=== PATIENT | male | born 1990 | race Caucasian/White ===

== ENCOUNTER 2021-07-05 21:06 | Emergency (ER) | payer SELFPAY ==
[2021-07-05 21:17] VITALS: BP 160/94; PULSE 80; RESP 16; TEMP 36.5; O2SAT 95
--- NOTE | 2021-07-05 22:02 | W.EDPROG ---
Discharge Plan Disposition Patient Disposition: HOME Condition: Improving Discharge Details Clinical Impression: Sciatica Primary Care Provider: Unknown,Unknown ED Provider: Timothy Holliday Home Meds and New Rx's Prescriptions: New lidocaine [Lidoderm] 5 % adhesive patch,medicated 1 patch topical DAILY Qty: 15 0RF Rx Instructions: leave on most painful area for up to 12 hrs naproxen [Naprosyn] 500 mg tablet 500 mg PO BID PRNQty: 20 0RF Continued calcium carbonate [Tums] 300 mg (750 mg) Tablet,Chewable 300 mg PO TID 0RF Discharge Instructions Instructions: Sciatica (ED) Additional Instructions: Lidoderm and Naprosyn as directed. Gentle stretching as tolerated. Cool and/or warm compresses every 2 hours for 20 minutes. Please watch for new or worsening symptoms and return to the ER for any concerns. When you return home please discuss with your primary care provider your ongoing symptoms, outpatient physical therapy and potentially MRI may be indicated if symptoms persist Stand Alone Forms: Work Release
[2021-07-05] MEDS: Ketorolac 60 MG/2 ML VIAL IM (22:04)
[2021-07-05] MEDS: Lidocaine 5% Patch 1 PATCH TP (22:05)
--- NOTE | 2021-07-05 22:23 | ED.GENADUL_ITS ---
Discharge Plan Disposition Patient Disposition: HOME Condition: Improving Discharge Details Clinical Impression: Sciatica Primary Care Provider: Unknown,Unknown ED Provider: Timothy Holliday Home Meds and New Rx's Prescriptions: New lidocaine [Lidoderm] 5 % adhesive patch,medicated 1 patch topical DAILY Qty: 15 0RF Rx Instructions: leave on most painful area for up to 12 hrs naproxen [Naprosyn] 500 mg tablet 500 mg PO BID PRNQty: 20 0RF Continued calcium carbonate [Tums] 300 mg (750 mg) Tablet,Chewable 300 mg PO TID 0RF Discharge Instructions Instructions: Sciatica (ED) Additional Instructions: Lidoderm and Naprosyn as directed. Gentle stretching as tolerated. Cool and/or warm compresses every 2 hours for 20 minutes. Please watch for new or worsening symptoms and return to the ER for any concerns. When you return home please discuss with your primary care provider your ongoing symptoms, outpatient physical therapy and potentially MRI may be indicated if symptoms persist Stand Alone Forms: Work Release Medical Decision Making 30-year-old gentleman reports right-sided low back pain that radiates down through his buttocks and into his upper leg but not past his knee for the past 2 months. Patient reports that this began after he began working 12-hour shifts when he was on his feet for prolonged period of time. He has not tried any xdkz-iez-kiryrde medications. He denies fever, IV drug use, bowel or bladder incontinence and/or retention. Clinically he appears well, nontoxic. In triage he mentioned balance loss talking to him he actually states that because his le g feels altered at times and at times he feels like it gives out he feels like he may lose his balance and fall. He is neurologically intact. No evidence of cauda equina. Extremely low suspicion for epidural abscess. Clinically this appears musculoskeletal in nature, sciatica, etc. Plan is to to provide IM Toradol, and Lidoderm patch, and recommend that he follows up with his primary care provider to discuss his physical therapy and/or MRI if symptoms are to persist. Patient has no additional questions or concerns and is comfortable with this plan. Standard discharge and return precautions are provided. Patient is now requesting a work note for today. Will provide work note. This documentation was generated using [employer] system, please disregard any oddities of phrase or misspellings. HPI General Mode of arrival: ambulatory . Date/Time Provider Initiated Documentation: 07/05/21 21:07 . Limitations to Documentation: no limitations . Information obtained by: patient . History of Present Illness 30 year old M presents to the emergency department with the chief complaint of back pain, described as moderate, with intensity rated at 6. Quality is described as aching, and is localized to the back. Patient extremity. Patient started experiencing this month(s) (2) and it has been constant. improves with No relieving factors improve symptom(s), Movement worsens symptoms . Patient notes no other symptoms.. Patient did receive the following treatments prior to arrival, none Related Data Home Medications Medication Instructions Recorded Confirmed calcium carbonate 300 mg (750 mg) 300 mg PO TID 07/05/21 07/05/21 chewable tablet (Tums) lidocaine 5 % topical patch 1 patch TOPICAL DAILY #15 ea 07/05/21 (Lidoderm) naproxen 500 mg tablet (Naprosyn) 500 mg PO BID PRN #20 tab 07/05/21 Previous Rx's Medication Instructions Recorded lidocaine 5 % topical patch 1 patch TOPICAL DAILY #15 ea 07/05/21 (Lidoderm) naproxen 500 mg tablet (Naprosyn) 500 mg PO BID PRN #20 tab 07/05/21 Allergies Allergy/AdvReac Type Severity Reaction Status Date / Time ibuprofen Allergy Intermediate Nausea Unverified 07/05/21 21:21 General Stated Complaint: Nk/Back Pain STEFFANIE: 3 Review of Systems Constitutional Constitutional: Denies fever(s) and Denies weakness Cardiovascular Cardiovascular: Denies chest pain and Denies dyspnea Respiratory Respiratory: Denies cough and Denies dyspnea Gastrointestinal Gastrointestinal: Denies abdominal pain, Denies fecal incontinence, Denies nausea and Denies vomiting Genitourinary Genitourinary: Denies difficulty urinating Musculoskeletal Musculoskeletal: Reports back pain, Denies arthralgias, Denies numbness, Denies stiffness and Reports tingling Integumentary/Breasts Skin/Breast: Denies rash Neurologic Neurologic: Denies numbness, Reports tingling and Denies weakness PFSH All Active Problems Sciatica (Acute) Social History Smoking/Tobacco Use Status: Never Smoking risk assessment performed?: Yes Alcohol Intake: current Alcohol Intake frequency: 0-2 drinks per day Alcohol type: beer Drug use: Daily Substance use type: marijuana Do you feel safe at home: Yes Do you feel safe in your relationship?: Yes Exam Const General: cooperative, healthy appearing, comfortable and no acute distress Orientation: alert and awake [facility] Head: normal to inspection, normocephalic and atraumatic Eyes General: appearance normal, both eyes and all related structures Conjunctivae: conjunctivae normal Neck Neck: normal visual inspection, full ROM, trachea midline and supple Resp Effort & Inspection: normal respiratory effort and able to speak in complete sentences Auscultation: clear to auscultation bilaterally Cardio Rate: regular rate Rhythm: regular rhythm GI Inspection: normal to inspection Palpation: soft, not firm, no guarding, no pulsatile masses and nontender Auscultation: normal bowel sounds Back/Spine/Pelvis Back: no CVA tenderness and back tenderness (Diffuse right lumbar and SI region) Thoracic/Lumbar Spine: straight leg raise positive (Right sided, 15 degree) Skin General skin exam: no rashes or lesions noted Neuro General: patient alert, patient awake, moves all extremities and no focal motor deficits Cognition: normal cognition Speech: speech normal Gait: normal gait Motor: muscle tone normal throughout and strength 5/5 throughout Sensory Exam: no sensory deficits noted Extrem General: normal to inspection, full ROM, capillary refill normal, no pedal edema and no calf tenderness Psych Appearance: grossly normal Mental Status: mental status grossly normal Course Vital Signs Vital signs: Vital Signs Temperature 36.5 C 07/05/21 21:17 Pulse 80 07/05/21 21:17 Respiratory Rate 16 07/05/21 21:17 Blood Pressure 160/94 H 07/05/21 21:17 Pulse Oximetry 95 07/05/21 21:17 Temperature 36.5 C 07/05/21 21:17 Temperature Source Skin 07/05/21 21:17 Pulse 80 07/05/21 21:17 Respiratory Rate 16 07/05/21 21:17 Respiratory Effort Non-Labored 07/05/21 21:22 Blood Pressure 160/94 H 07/05/21 21:17 Pulse Oximetry 95 07/05/21 21:17 Pain Level 6 07/05/21 22:04 PAWSS Have you Been Recently Intoxicated or Drunk Within the Last 30 days?: No Have you Ever Experienced Previous Episodes of Alcohol Withdrawal?: No Have you ever Experienced Withdrawal Seizures?: No Have you ever Experienced Delirium Tremens(DT)s?: No Have you ever undergone Alcohol Rehabilitation Treatment (i.e, inpt ot outpatient treatment programs)?: No Have you ever Experienced Blackouts?: No Have you ever Combined Alcohol with other Downers within the last 90 days?: No Have you ever Combined Alcohol with any other Substance of Abuse during the last 90 days?: No Positive Blood Alcohol level on Presentation? [PCS.BAL]: Yes Evidence of Increased Autonomic Activity (i.e. HR>120, tremor, sweating, agitation, nausea)?: No Result: 1
== END 2021-07-05 22:24 | disposition home or self-care (01) ==
PROVIDERS: Emergency Provider Physician Assistant
DX: M54.41 Lumbago with sciatica, right side (principal)
CPT/HCPCS: 96372; 99284; 99283; J1885

== ENCOUNTER 2022-06-07 18:48 | Emergency (ER) | payer MEDICAID, SELFPAY ==
[2022-06-07 18:55] VITALS: BP 183/98; PULSE 112; RESP 20; TEMP 36.8; O2SAT 96
--- NOTE | 2022-06-07 19:28 | ED.GENADUL_ITS ---
Discharge Plan Disposition Patient Disposition: Home Condition: Stable Discharge Details Clinical Impression: Acute sinusitis Primary Care Provider: Unknown,Unknown ED Provider: Yi Neri Home Meds and New Rx's Prescriptions: New amoxicillin-pot clavulanate 875-125 mg tablet 1 tab PO BID 10 Days Qty: 20 0RF prednisone 20 mg tablet See Rx Instructions .ROUTE .COMPLEX Qty: 12 0RF Rx Instructions: Take 3 tabs daily for 2 days, then 2 tabs daily for 2 days, then 1 tab daily for 2 days Discharge Instructions Instructions: Sinusitis (ED) Additional Instructions: Your strep, COVID, influenza and RSV tests today are negative. Your symptoms may be consistent with a sinus infection. These infections can start as a viral infection which are best treated with supportive care with fluids, rest and nlpv-egx-omecncz cough and cold medication. These infections can also be bacterial which are treated with antibiotics. Drink plenty of fluids and get plenty of rest. Alternate tylenol and motrin as needed and directed for pain. Prescriptions for steroids and antibiotics have been sent electronically to your pharmacy to take as directed until finished. Follow-up with your primary care doctor in 1 week. Return to the emergency department with any worsening or new concerning symptoms. Stand Alone Forms: Work Release Discharge Data Discharge Physician: Yi Neri Medical Decision Making 31yo M who presents to the ED w/ a c/o nasal congestion, nasal discharge, facial pain, headache and sore throat for the past 3 days. Blood pressure and heart rate elevated on arrival. Heart rate normal upon my assessment. He is afebrile with normal respiratory rate and oxygen saturation. Patient appears to be breathing comfortably. He has tenderness to palpation to bilateral frontal sinuses. Oropharynx appears erythematous but no exudates. He has no lymphadenopathy, drooling, trismus or submandibular swelling. Lungs clear bilaterally. Differential diagnosis includes sinusitis, COVID, influenza, RSV, viral URI, allergies. Fluvid obtained and negative. Rapid strep negative. As patient has report of yellow nasal discharge, severe facial pain and headache and he is a smoker, will cover with antibiotics and steroids. He was given doses of antibiotics and steroids here and prescription sent electronically to his pharmacy. Advised to follow up with the primary care doctor for re-evaluation. Usual and customary return precautions given prior to discharge. Medical Records Medical records reviewed: Yes I reviewed the patient's medical records. HPI General Mode of arrival: ambulatory . Date/Time Provider Initiated Documentation: 06/07/22 18:50 . Limitations to Documentation: no limitations . Information obtained by: patient . HPI Narrative: Pt is a 31yo M who presents to the ED w/ a c/o runny nose, green and yellow nasal discharge, sore throat, headache and facial pain for the past 3 days. Patient states his symptoms started with nasal congestion and then progressed to sore throat. He states he did recently have COVID but states this resolved and he recently had a negative home COVID test. Patient states his nasal congestion and facial pain is bothering him the most. He states he has felt body aches but denies any known fever or chills. He denies chest pain, difficulty breathing, abdominal pain or vomiting. Related Data Home Medications Medication Instructions Recorded Confirmed amoxicillin 875 mg-potassium 1 tab PO BID 10 days #20 tabs 06/07/22 clavulanate 125 mg tablet prednisone 20 mg tablet See Rx Instructions .Route 06/07/22 .COMPLEX #12 tabs Previous Rx's Medication Instructions Recorded amoxicillin 875 mg-potassium 1 tab PO BID 10 days #20 tabs 06/07/22 clavulanate 125 mg tablet prednisone 20 mg tablet See Rx Instructions .Route 06/07/22 .COMPLEX #12 tabs Allergies Allergy/AdvReac Type Severity Reaction Status Date / Time ibuprofen Allergy Intermediate Nausea Unverified 03/01/22 11:52 General Stated Complaint: Headache STEFFANIE: 4 Review of Systems All systems reviewed & are unremarkable except as noted in HPI and below Constitutional Constitutional: Reports as per HPI, Denies chills, Denies fever(s) and Reports headache(s) Eyes Eyes: Denies blurry vision ENT Ears, Nose, Mouth, and Throat: Denies dizziness, Reports headache(s), Reports nasal congestion, Reports nasal discharge, Reports sore throat and Denies throat swelling Cardiovascular Cardiovascular: Denies chest pain and Denies dyspnea Respiratory Respiratory: Denies cough and Denies dyspnea Gastrointestinal Gastrointestinal: Denies abdominal pain, Denies diarrhea and Denies vomiting Genitourinary Genitourinary: Denies hematuria and Denies dysuria Musculoskeletal Musculoskeletal: Denies back pain and Denies numbness Integumentary/Breasts Skin/Breast: Denies lesions and Denies rash Neurologic Neurologic: Denies dizziness, Reports headache(s), Denies localized weakness and Denies numbness Allergic/Immunologic Allergic/Immunologic: Denies throat swelling PFSH All Active Problems (Updated 06/07/22 @ 20:34 by Yi Neri DO) Acute sinusitis (Acute) Medical History (Updated 06/07/22 @ 20:34 by Yi Neri DO) No significant past medical history Surgical History (Updated 06/07/22 @ 20:34 by Yi Neri DO) No significant past surgical history Social History Smoking/Tobacco Use Status: Never Smoking risk assessment performed?: Yes Alcohol Intake: current Alcohol Intake frequency: 0-2 drinks per day Alcohol type: beer Drug use: Daily Substance use type: marijuana Do you feel safe at home: Yes Do you feel safe in your relationship?: Yes Exam Const General: cooperative and no acute distress Orientation: alert, awake and oriented x3 HENMT Head: normal to inspection Ears: hearing grossly normal bilaterally, external ears normal and TM's normal bilaterally General nose exam: external nose normal Face and sinus: sinus tenderness frontal (bilateral) Mouth: oral mucosae normal, no drooling and no trismus Throat: uvula midline, no peritonsillar masses and posterior oropharynx abnormal erythema; no exudates Eyes General: appearance normal, both eyes and all related structures Neck Neck: normal visual inspection, trachea midline, supple, no anterior neck swelling and No submandibular swelling Lymphatic: no lymphadenopathy noted Resp Effort & Inspection: normal respiratory effort and able to speak in complete sentences Auscultation: clear to auscultation bilaterally Cardio Rate: regular rate Rhythm: regular rhythm Skin General skin exam: no rashes or lesions noted Neuro General: patient alert, patient awake and patient oriented x3 Motor: muscle tone normal throughout Extrem General: normal to inspection and full ROM Psych Appearance: grossly normal Affect: normal affect Course Vital Signs Vital signs: Vital Signs Temperature 98.2 F 06/07/22 18:55 Pulse 112 H 06/07/22 18:55 Respiratory Rate 20 06/07/22 18:55 Blood Pressure 183/98 H 06/07/22 18:55 Pulse Oximetry 96 06/07/22 18:55 Temperature 98.2 F 06/07/22 18:55 Temperature Source Oral 06/07/22 18:55 Pulse 112 H 06/07/22 18:55 Respiratory Rate 20 06/07/22 18:55 Respiratory Effort Normal, Non-Labored 06/07/22 19:20 Blood Pressure 183/98 H 06/07/22 18:55 Blood Pressure Position Sitting 06/07/22 18:55 Pulse Oximetry 96 06/07/22 18:55 Oxygen Delivery Method Room Air 06/07/22 18:55 Oxygen Flow Rate 0 06/07/22 18:55 Pain Level 7 06/07/22 18:55
[2022-06-07 19:59] LABS: COVID-19 PCR Negative (Negative); Influenza A PCR Negative (Negative); Influenza B PCR Negative (Negative); RSV PCR Negative (Negative)
[2022-06-07 20:02] LABS: Source Nasopharynx
[2022-06-07] MEDS: Amoxicillin 875/Clav. 125 TAB PO (20:37)
[2022-06-07] MEDS: Amox. 875/Clav. 125, 2 TABS/BTL 1 TAB PO (20:37)
[2022-06-07] MEDS: predniSONE 20 MG TAB 60 MG PO (20:37)
== END 2022-06-07 20:38 | disposition home or self-care (01) ==
PROVIDERS: Emergency Provider Physician Assistant
DX: J01.90 Acute sinusitis, unspecified (principal); R00.0 Tachycardia, unspecified; F17.200 Nicotine dependence, unspecified, uncomplicated; Z20.822 Contact with and (suspected) exposure to COVID-19
CPT/HCPCS: 87637; 87880; 99283; 87081; 99284; J7512

== ENCOUNTER 2022-06-13 05:58 | Emergency (ER) | payer MEDICAID, SELFPAY ==
[2022-06-13 06:02] VITALS: BP 138/90; PULSE 83; RESP 18; TEMP 36.6; O2SAT 96
--- NOTE | 2022-06-13 06:25 | ED.GENADUL_ITS ---
Discharge Plan Disposition Patient Disposition: Home Condition: Good Discharge Details Clinical Impression: Bilateral lower extremity pain Primary Care Provider: Mariza,Local ED Provider: Tomy Shea Home Meds and New Rx's Prescriptions: Discontinued amoxicillin-pot clavulanate 875-125 mg tablet 1 tab PO BID 10 Days Qty: 20 0RF prednisone 20 mg tablet See Rx Instructions .ROUTE .COMPLEX Qty: 12 0RF Rx Instructions: Take 3 tabs daily for 2 days, then 2 tabs daily for 2 days, then 1 tab daily for 2 days Discharge Instructions Instructions: Leg Pain (ED) Additional Instructions: At this time your symptoms appear consistent with the residual effects of likely a cramp that occurred during the night. Please stay well-hydrated, stretch your legs as we discussed together, and take it easy today. Additionally on your laboratory work-up there was evidence of mild dehydration, please stay well-hyd rated. You also do have slight elevation in your liver enzymes, this may be secondary to mild obesity, alcohol use, or hepatitis from a viral etiology. We have sent a viral panel for further assessment. Please contact the emergency department or utilize your portal system to follow-up on these results in the next 3 to 4 days. If you notice any worsening of your symptoms, or any new symptoms such as vomiting, diarrhea, fever, chills, shortness of breath, chest pain, numbness, weakness, or fainting , please return immediately to the emergency department for reevaluation. Please follow up with your primary care provider as soon as possible for reassessment and reevaluation. As always, it was a pleasure participating in your medical care today. Medical Decision Making 31-year-old male with no significant past medical history presents today for evaluation of bilateral calf pain. Patient states that he woke up last night around 4:30 in the morning with a clearing up in his left calf/leg, however when he got up to try to go to the bathroom he felt what he describes as hot butter knives in his cast extending to the posterior knees bilaterally to the back of the thigh. Symptoms are worse with movement. Improved when lying still. He denies any recent falls or trauma. He did have some alcohol last night but nothing excessive. He states he has been drinking fairly well and regularly. He does admit to a history of sciatica in the past but states that this feels little different. He denies any recent long trips surgeries or procedures or history of blood clots. He denies any other complaints at this time. He did take Tylenol before arrival and this only slightly helped. Physical exam demonstrates relatively unremarkable exam. Notable arches in both feet, and mild's increased tenseness of the calves bilaterally. However there is no evidence of a focal spasm. Sensation, capillary refill, movement and strength are all normal. No rash swelling or edema. Negative straight leg raise. Symptoms appear inconsistent with gout, trauma, or significant radiculopathy. I am uncertain as to exactly what the focal cause of his symptoms. It may be a bilateral spasm, or potential mild peripheral neuropathy. Mucous membranes are dry. We will rehydrate with a liter of normal saline, give Toradol, evaluate for electrolyte abnormality, and reassess. 7:01 AM Laboratory work-up has returned, BUN/creatinine ratio slightly suggestive of mild dehydration. Electrolytes normal, patient's AST and ALT are elevated, and slightly concerning. 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 He denies any history of ever having hepatitis, or ever using IV drugs. He did have seafood for the last 2 days. He has no abdominal tenderness or hepatomegaly on exam. We will send a hepatitis panel, and I have requested that the patient call back in 2 to 3 days for follow-up on this. Otherwise the patient states that he feels slightly improved after IV fluids and Toradol. I do feel the patient is stable for discharge at this time. No evidence of acute life-threatening etiology otherwise noted on exam. I suspect his symptoms are likely residual pain secondary to cramping that occurred during the night when he woke up. Recommend taking it easy today, stretching his legs throughout the day, and staying well-hydrated. Discussed red flags for which to return. I have extensively reviewed the treatment plan and discharge instructions with the patient. I have addressed all patient concerns at this time. The patient was made aware of what symptoms to monitor for that would warrant a return to the emergency department. Discussed the plan with the patient, they demonstrate verbal understanding and agreement with our assessment and plan at this time. The documentation in this chart was dictated using [employer] dictation software. Please excuse any dictation errors. HPI General Date/Time Provider Initiated Documentation: 06/13/22 06:13 . HPI Narrative: 31-year-old male with no significant past medical history presents today for evaluation of bilateral calf pain. Patient states that he woke up last night around 4:30 in the morning with a clearing up in his left calf/leg, however when he got up to try to go to the bathroom he felt what he describes as hot butter knives in his cast extending to the posterior knees bilaterally to the back of the thigh. Symptoms are worse with movement. Improved when lying still. He denies any recent falls or trauma. He did have some alcohol last night but nothing excessive. He states he has been drinking fairly well and regularly. He does admit to a history of sciatica in the past but states that this feels little different. He denies any recent long trips surgeries or procedures or history of blood clots. He denies any other complaints at this time. He did take Tylenol before arrival and this only slightly helped. Related Data Allergies Allergy/AdvReac Type Severity Reaction Status Date / Time ibuprofen Allergy Intermediate Nausea Unverified 06/13/22 06:07 General Stated Complaint: Orthopedic STEFFANIE: 4 Review of Systems All systems reviewed & are unremarkable except as noted in HPI and below PFSH All Active Problems (Updated 06/13/22 @ 07:04 by Tomy Shea DO) Bilateral lower extremity pain (Acute) Acute sinusitis (Acute) Medical History No significant past medical history Surgical History No significant past surgical history Social History Smoking/Tobacco Use Status: Never Smoking risk assessment performed?: Yes Alcohol Intake: current Alcohol Intake frequency: 0-2 drinks per day Alcohol type: beer Drug use: Daily Substance use type: marijuana Do you feel safe at home: Yes Do you feel safe in your relationship?: Yes Exam Narrative Exam Narrative: 1.Const: Well-nourished, Well-developed, appearing stated age 2.Eyes: PERRL, no conjunctival injection, and symmetrical lids. 3.ENT: Atraumatic external nose and ears. Dry MM. Neck: Symmetric, trachea midline, No thyromegaly. 4.CVS: +S1/S2, No murmurs or gallops. Peripheral pulses 2+ and equal in all extremities. Brisk capillary refill in all extremities. 5.RESP: Unlabored respiratory effort. Clear to auscultation bilaterally. No wheezes rales or rhonchi 6.GI: Soft, Nontender/Nondistended, No hepatosplenomegaly. No guarding or rebound. 7.MSK: Normocephalic/Atraumatic, Extremities w/o deformity or ttp No cyanosis or clubbing, Normal movement of all extremities. Patient demonstrates notably elevated arches in both feet. Brisk capillary refill in all toes. Intact sensation in both lower extremities. Both calves are mildly spasmed, but with no focal tenderness. Negative Homans' sign. No swelling in the posterior popliteal space. No focal reproducible tenderness in both lower extremities. No signs of trauma. No redness or rash. Negative straight leg raise. 8.Skin: Warm, Dry. No rashes or lesions. 9.Neuro: information assurance specialist II-XII grossly intact. Sensation grossly intact, no focal neurologic deficits. 10.Psych: (AAO) x3. Appropriate mood and affect Course Vital Signs Vital signs: Vital Signs Temperature 36.6 C 06/13/22 06:02 Pulse 83 06/13/22 06:02 Respiratory Rate 18 06/13/22 06:02 Blood Pressure 138/90 06/13/22 06:02 Pulse Oximetry 96 06/13/22 06:02 Temperature 36.6 C 06/13/22 06:02 Temperature Source Oral 06/13/22 06:02 Pulse 83 06/13/22 06:02 Respiratory Rate 18 06/13/22 06:02 Respiratory Effort Normal 06/13/22 06:06 Blood Pressure 138/90 06/13/22 06:02 Blood Pressure Position Sitting 06/13/22 06:02 Pulse Oximetry 96 06/13/22 06:02 Oxygen Delivery Method Room Air 06/13/22 06:02 Oxygen Flow Rate 0 06/13/22 06:02 Pain Level 9 06/13/22 06:02
[2022-06-13] MEDS: Ketorolac 15 MG/ML VIAL IVP (06:34)
[2022-06-13] MEDS: Normal Saline 1,000 ML 1000 ML IV (06:34)
[2022-06-13 06:35] LABS: Abs Immature Grans 0.09 10^3/uL (0.0-0.06); Absolute Basophil Count 0.03 10^3/uL (0.0-0.2); Absolute Eosinophil Count 0.16 10^3/uL (0.0-0.7); Absolute Lymphocyte Count 4.54 10^3/uL (1.2-3.4); Absolute Monocyte Count 1.22 10^3/uL (0.1-0.8); Absolute Neutrophil Count 6.56 10^3/uL (1.2-6.7); Basophils % 0.2; Eosinophils % 1.3; HCT 46.1 % (40.0-50.0); HGB 15.3 g/dL (13.5-17.5); Immature Grans % 0.7; MCH 29.8 pg (27.0-33.0); MCHC 33.2 % (32.0-36.0); MCV 90 fL (80-95); Monocytes % 9.7; Neutrophils % 52.1; Platelet Count 308 10^3/uL (130-400); RBC 5.13 10^6/uL (4.36-5.78); RDW 12.4 % (11.8-14.1); RDW-SD 40.9 fL
[2022-06-13 06:51] LABS: ALT 162 U/L (16-63); AST 83 U/L (15-37); Albumin 3.9 g/dL (3.4-5.0); Alkaline Phosphatase 72 U/L (46-116); Anion Gap 5.8 mmol/L (3-11); BUN 19 mg/dL (7-18); Bilirubin, Total 0.2 mg/dL (0.2-1.0); CO2 29.2 mmol/L (21.0-32.0); Calcium 8.9 mg/dL (8.5-10.1); Chloride 106 mmol/L (98-107); Estimated GFR 103.84 (mL/min/1.73m2); Glucose 100 mg/dL (74-106); Magnesium 1.9 mg/dL (1.8-2.4); Potassium 4.5 mmol/L (3.5-5.1); Sodium 141 mmol/L (136-145); Total Protein 7.3 g/dL (6.4-8.2)
[2022-06-13 07:07] VITALS: BP 137/71; PULSE 78; RESP 18; O2SAT 96
[2022-06-15 12:30] LABS: Hepatitis A Antibody IgM Negative (Negative); Hepatitis B Core Antibody Negative (Negative); Hepatitis B surface Ag Negative (Negative); Hepatitis C Ab w Rflx HCV PCR Negative (Negative)
--- NOTE | 2022-06-17 09:36 | NUR.NOTE ---
Nursing Note: Patient called asking about his send out labs. I reviewed it with Dr Wolf and the Hepatitis panel is all negative. To hydrate with strawberries and bananas for the leg cramps. Pt is aware.
== END 2022-06-13 07:39 | disposition home or self-care (01) ==
PROVIDERS: Emergency Provider Student in an Organized Health Care Education/Training Program
DX: M79.605 Pain in left leg (principal); M79.604 Pain in right leg; E86.0 Dehydration; R74.01 Elevation of levels of liver transaminase levels; E66.9 Obesity, unspecified
CPT/HCPCS: 36415; 80053; 86704; 86709; 86803; 87340; 96361; 96374; 99284; 83735; 85025; J1885

== ENCOUNTER 2023-10-22 23:10 | Emergency (ER) | payer SELFPAY ==
--- NOTE | 2023-10-22 23:00 | RT.EKG_ITS ---
APPROVED REPORT Exam: Resting ECG Reason for Exam: CP Patient Location: E HR:81 bpm ECG Measurements Heart Rate 81 AXIS VA 133 P -9 QRSd 92 QRS 17 QT 357 T 19 QTc 416 Conclusion Sinus rhythm.. V-rate 60- [address] segment or T wave abnormalities to suggest occlusive CO
[2023-10-22 23:13] VITALS: BP 146/90; PULSE 87; RESP 21; TEMP 36.5; O2SAT 98
[2023-10-22 23:32] VITALS: RESP 20
[2023-10-22 23:36] LABS: Abs Immature Grans 0.05 10^3/uL (0.0-0.06); Absolute Basophil Count 0.04 10^3/uL (0.0-0.2); Absolute Eosinophil Count 0.24 10^3/uL (0.0-0.7); Absolute Monocyte Count 0.99 10^3/uL (0.1-0.8); Absolute Neutrophil Count 9.46 10^3/uL (1.2-6.7); Basophils % 0.3 %; Eosinophils % 1.8 %; HCT 48.1 % (40.0-50.0); HGB 16.5 g/dL (13.5-17.5); Immature Grans % 0.4 %; Lymphocytes % 19.4 %; MCH 31.2 pg (27.0-33.0); MCHC 34.3 % (32.0-36.0); MCV 91 fL (80-95); MPV 9.1 fL (8.0-11.0); Monocytes % 7.4 %; Neutrophils % 70.7 %; Platelet Count 243 10^3/uL (130-400); RBC 5.29 10^6/uL (4.36-5.78); WBC 13.38 10^3/uL (4.4-10.8)
--- NOTE | 2023-10-22 23:42 | ED.GENADUL_ITS ---
Discharge Plan Disposition Patient Disposition: Home Condition: Good Discharge Details Clinical Impression: Pain in throat and chest Primary Care Provider: Unknown,Unknown ED Provider: Brittney Butler Home Meds and New Rx's Prescriptions: Continued fluoxetine 40 mg capsule 40 mg PO DAILY Qty: 90 1RF Discontinued lidocaine 5 % adhesive patch,medicated 1 patch topical DAILY Qty: 15 3RF Rx Instructions: leave on most painful area for up to 12 hrs naproxen 250 mg tablet 250 mg PO BID PRN (Reason: pain) Qty: 180 0RF Discharge Instructions Instructions: Chest Pain, Adult ED, Sore Throat, Adult ED Additional Instructions: Call your primary care doctor on Tuesday to schedule an appointment to follow up on your visit today. At that vist discuss your symptoms and your blood pressure which is high here today. Return to the emergency department for new or worsening symptoms including difficulty breathing, inability to swallow your spit, vomiting blood, new/different/worse pain, or if you have any other concerns. HPI General Mode of arrival: ambulatory . Date/Time Provider Initiated Documentation: 10/22/23 23:11 . Limitations to Documentation: no limitations . Information obtained by: patient and family . HPI Narrative: 33yo previously healthy male presenting with throat pain with swallowing x 3 days. For the past three days when swallowing liquids or solids has had throat pain going down his whole throat into his chest. No pain when not actively swallowing. Symptoms have been worsening and now it hurts to swallow his secretions. No difficulty breathing. No throat swelling. Never experienced anything similar in the past. No cough/rhinnorhea/ear pain. No nausea or vomiting. Does have a sour taste in his mouth when this happens. Seems worse when drinking alcohol which he does daily. No dark or bloody stool. No personal history of cardiac disease. Does have family history of early cardiac disease including uncle with TX in his 40's. No family history of sudden unexpected at a young age. He is otherwise in his usual state of health with no fevers, chills, rash, abdominal pain, or other concerns. Related Data Home Medications ?Medication ?Instructions ?Recorded ?Confirmed fluoxetine 40 mg capsule 40 mg PO DAILY #90 caps 02/06/23 10/22/23 Previous Rx's ?Medication ?Instructions ?Recorded fluoxetine 40 mg capsule 40 mg PO DAILY #90 caps 02/06/23 Allergies Allergy/AdvReac Type Severity Reaction Status Date / Time ibuprofen Allergy Intermediate Nausea Unverified 09/28/22 16:31 risperidone AdvReac Intermediate Nausea Verified 09/28/22 16:32 General Stated Complaint: Chest Pain STEFFANIE: 3 Review of Systems Narrative: see HPI Exam Narrative Exam Narrative: General: Alert, well appearing, well nourished, in no acute distress. Head: Normocephalic, atraumatic Neck: Trachea midline, ?Neck supple. No cervical lymphadenoapthy. ENT: ?MMM.? Tonsilar erythema and exudate. Cardiac: ?RRR, no murmurs appreciated Resp: No respiratory distress. CTAB. Abd: ?Soft, non-distended, nontender. Negative tolentino's. : ?No suprapubic tenderness. Extremities: ?No deformities.? No peripheral edema. Neurologic: GCS 15. ? Moves all extremities freely against gravity Course Vital Signs Vital signs: Vital Signs Temperature 36.5 C 10/22/23 23:13 Pulse 87 10/22/23 23:13 Respiratory Rate 21 10/22/23 23:13 Blood Pressure 146/90 H 10/22/23 23:13 Pulse Oximetry 98 10/22/23 23:13 Temperature 36.5 C 10/22/23 23:13 Temperature Source Oral 10/22/23 23:13 Pulse 87 10/22/23 23:13 Respiratory Rate 20 10/22/23 23:32 Respiratory Effort Normal, Non-Labored 10/22/23 23:32 Respiratory Depth Normal 10/22/23 23:32 Respiratory Pattern Normal 10/22/23 23:32 Blood Pressure 146/90 H 10/22/23 23:13 Blood Pressure Position Sitting 10/22/23 23:13 Pulse Oximetry 98 10/22/23 23:13 Oxygen Delivery Method Room Air 10/22/23 23:13 Oxygen Flow Rate 0 10/22/23 23:13 Pain Level 6 10/22/23 23:13 Lab/Test Results Lab/Test Results: Laboratory Tests Range/Units 10/22/23 23:30 WBC (4.4-10.8) 10^3/uL 13.38 H RBC (4.36-5.78) 10^6/uL 5.29 Hgb (13.5-17.5) g/dL 16.5 Hct (40.0-50.0) % 48.1 MCV (80-95) fL 91 MCH (27.0-33.0) pg 31.2 MCHC (32.0-36.0) % 34.3 RDW (11.8-14.1) % 12.0 Plt Count (130-400) 10^3/uL 243 MPV (8.0-11.0) fL 9.1 Immature Gran % % 0.4 Neutrophils % % 70.7 Lymphocytes % % 19.4 Monocytes % % 7.4 Eosinophils % % 1.8 Basophils % % 0.3 Nucleated RBC % (0.0-0.3) % 0.0 Absolute Neutrophils (1.2-6.7) 10^3/uL 9.46 H Absolute Lymphocytes (1.2-3.4) 10^3/uL 2.60 Absolute Monocytes (0.1-0.8) 10^3/uL 0.99 H Absolute Eosinophils (0.0-0.7) 10^3/uL 0.24 Absolute Basophils (0.0-0.2) 10^3/uL 0.04 Medical Decision Making 33yo previously healthy male presenting with throat pain on swallowing which radiates down into his chest x 3 days. Slightly hypertensive on arrival, vital signs otherwise reassuring. Physical exam with tonsilar erythema and exudate, otherwise unremarkable. EKG NSR, appropriate intervals, no ST segment or T wave abnormalities to suggest occlusive TX. PERC negative, would not further pursue pulmonary embolism with dimer/CT scan. No difficultly wtih secretions, no respiratory distress, exam reassuring against deep space neck infection; would not get CT imaging. -Tylenol and GI cocktail for initial symptom treatment -Labs reviewed as below, CBC with mild leukocytosis at 13 (nonspecific), CMP reassuring, lipase normal (not pancreatitis), troponin negative. CENTOR score 2; rapid strep negative, sent for culture. Would not treat empirically. -CXR independently reviewed, no focal pneumonia or pneumothorax on my view, agree with radiology read below. On reassessment patient reports proximal throat pain has improved, does still have pain more distally when he swallows. HEART score 2 for RF, low risk. Suspect likely reflux or esophageal pathology; advised to follow up with PCP. Discharged home; discharge instructions and return precautions were reviewed with patient who verbalized understanding. All questions were answered and he is in full agreement with the plan. Imaging Data Radiologic Study: Imaging: X-Ray Radiologist's impression: IMPRESSION: No active pulmonary disease Lab Data Lab results reviewed: Yes I reviewed the patient's lab results. Labs: 10/22/23 23:45 Tonsil - Not Specified Group A Streptococcus Culture - Pending Laboratory Tests Range/Units 10/22/23 23:30 WBC (4.4-10.8) 10^3/uL 13.38 H RBC (4.36-5.78) 10^6/uL 5.29 Hgb (13.5-17.5) g/dL 16.5 Hct (40.0-50.0) % 48.1 MCV (80-95) fL 91 MCH (27.0-33.0) pg 31.2 MCHC (32.0-36.0) % 34.3 RDW (11.8-14.1) % 12.0 Plt Count (130-400) 10^3/uL 243 MPV (8.0-11.0) fL 9.1 Immature Gran % % 0.4 Neutrophils % % 70.7 Lymphocytes % % 19.4 Monocytes % % 7.4 Eosinophils % % 1.8 Basophils % % 0.3 Nucleated RBC % (0.0-0.3) % 0.0 Absolute Neutrophils (1.2-6.7) 10^3/uL 9.46 H Absolute Lymphocytes (1.2-3.4) 10^3/uL 2.60 Absolute Monocytes (0.1-0.8) 10^3/uL 0.99 H Absolute Eosinophils (0.0-0.7) 10^3/uL 0.24 Absolute Basophils (0.0-0.2) 10^3/uL 0.04 Sodium (136-145) mmol/L 140 Potassium (3.5-5.1) mmol/L 3.7 Chloride (98-107) mmol/L 103 Carbon Dioxide (21.0-32.0) mmol/L 24.3 Anion Gap (3-11) mmol/L 12.7 H BUN (7-18) mg/dL 6 L Creatinine (0.70-1.30) mg/dL 0.8 Est GFR (CKD-EPI 2020) (mL/min/1.73m2) 120.59 Glucose (74-106) mg/dL 100 Calcium (8.5-10.1) mg/dL 8.5 Total Bilirubin (0.2-1.0) mg/dL 0.50 AST (15-37) U/L 32 ALT (16-63) U/L 64 H Alkaline Phosphatase (46-116) U/L 88 Troponin I (< or =60) ng/L < 50 Total Protein (6.4-8.2) g/dL 7.3 Albumin (3.4-5.0) g/dL 3.7 Lipase (16-77) U/L 56 Quality:SDOH Health Related Social Needs: No Data to Display PFSH All Active Problems (Updated 10/23/23 @ 00:34 by Brittney Butler MD) Pain in throat and chest (Acute) Major depression (Chronic) Lumbosacral strain (Acute) Neurogenic claudication (Acute) Low back pain (Acute) Right sided sciatica Episodic ataxia with slurred speech (Acute) Medical History (Updated 10/23/23 @ 00:34 by Brittney Butler MD) Petechial rash left lower leg No significant past medical history Surgical History No significant past surgical history Social History (Updated 07/23/22 @ 12:38 by Kavya Copeland) Smoking/Tobacco Use Status: Current every day Tobacco Type: cigarettes Tobacco: How many years used: 15 Quit status: considering quitting Second Hand Exposure: Yes Smoking risk assessment performed?: Yes Alcohol Intake: current Alcohol Intake frequency: 3 or more drinks per day Alcohol type: beer Drug use: Daily Substance use type: marijuana Communication Needs: None Pets and animals: Yes Pets and animals: dog(s) Sexually active: No Do you think of yourself as: straight/heterosexual Current gender identity: male What is your relationship status?: never How often do you talk on the phone with friends or family?: three or more times per week How often do you get together with friends or relatives?: three or more times per week How often do you attend samaritan or baptist services?: 1-3 times per year Do you belong to any clubs or organized social groups?: no Panel score (0-1 are the most socially isolated patients): 1 What type of physical activity do you participate in: none Frequency: does not exercise Miya/Restorationist: None Special miya needs: No Seatbelt use: sometimes Helmet use: Yes Helmet use: sometimes Drive intox or ride w/intox motorcycle 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 driver: No Do you feel safe at home: Yes Do you feel safe in your relationship?: Yes PAWSS Have you Been Recently Intoxicated or Drunk Within the Last 30 days?: Yes Have you Ever Experienced Previous Episodes of Alcohol Withdrawal?: No Have you ever Experienced Withdrawal Seizures?: No Have you ever Experienced Delirium Tremens(DT)s?: No Have you ever undergone Alcohol Rehabilitation Treatment (i.e, inpt ot outpatient treatment programs)?: No Have you ever Experienced Blackouts?: No Have you ever Combined Alcohol with other Downers within the last 90 days?: Yes Have you ever Combined Alcohol with any other Substance of Abuse during the last 90 days?: Yes Positive Blood Alcohol level on Presentation? [PCS.BAL]: Yes Evidence of Increased Autonomic Activity (i.e. HR>120, tremor, sweating, agitation, nausea)?: No Result: 4
[2023-10-22] MEDS: Acetaminophen 500 MG TAB 1000 MG PO (23:50)
--- NOTE | 2023-10-22 23:53 | DI.RAD_ITS ---
Exam(s) XR CHEST 2V PA LATERAL EXAM: XR CHEST 2V PA LATERAL CLINICAL HISTORY: chest pain. TECHNIQUE: 2D digital imaging was performed. COMPARISON: No exams were available for comparison FINDINGS: 2 views: Heart size is normal. The mediastinum is not widened. Left lung is clear. Mild increased markings noted in the right lung base. No air bronchograms. No pleural effusions. No pulmonary edema. No pneumothorax. No fractures. IMPRESSION: Mild increased markings in the right lung base. Recommend nonportable PA and lateral views with bett er inspiration when clinically possible. DATA REPOSITORY: RADIATION DOSE DELIVERED:
[2023-10-23 00:01] LABS: ALT 64 U/L (16-63); AST 32 U/L (15-37); Albumin 3.7 g/dL (3.4-5.0); Alkaline Phosphatase 88 U/L (46-116); Anion Gap 12.7 mmol/L (3-11); BUN 6 mg/dL (7-18); CO2 24.3 mmol/L (21.0-32.0); CREATININE 0.8 mg/dL (0.70-1.30); Calcium 8.5 mg/dL (8.5-10.1); Chloride 103 mmol/L (98-107); Estimated GFR 120.59 (mL/min/1.73m2); Glucose 100 mg/dL (74-106); Lipase 56 U/L (16-77); Potassium 3.7 mmol/L (3.5-5.1); Sodium 140 mmol/L (136-145); Total Protein 7.3 g/dL (6.4-8.2)
[2023-10-23 00:03] LABS: Troponin I < 50 ng/L (< or =60)
--- NOTE | 2023-10-23 00:34 | DI.VRAD_ITS ---
PROCEDURE INFORMATION: Exam: XR Chest Exam date and time: 10/22/2023 11:47 PM Age: 33 years old Clinical indication: Chest pressure; Chest pain TECHNIQUE: Imaging protocol: Radiologic exam of the chest. Views: 2 views. COMPARISON: No relevant prior studies available. FINDINGS: Tubes, catheters and devices: Cardiac leads superimposed over the chest. Lungs: No alveolar infiltrate. Pleural spaces: No pleural fluid collection. No pneumothorax. Heart/Mediastinum: Normal heart size. Bones/joints: Unremarkable for patient age. IMPRESSION: No active pulmonary disease. Dictated and Authenticated by: Desmond St MD. Ordering:DICK Lugo MD
[2023-10-23 00:36] VITALS: BP 126/52; PULSE 81; RESP 20; TEMP 37.2; O2SAT 96
== END 2023-10-23 00:47 | disposition home or self-care (01) ==
PROVIDERS: Emergency Provider Student in an Organized Health Care Education/Training Program
DX: R07.9 Chest pain, unspecified (principal); R07.0 Pain in throat; R03.0 Elevated blood-pressure reading, without diagnosis of hypertension
CPT/HCPCS: 36415; 80053; 83690; 93005; 99284; 71046; 84484; 85025; 87081; 93010; 99283

== ENCOUNTER 2023-12-28 19:46 | Emergency (ER) | payer SELFPAY ==
[2023-12-28] VITALS (54 sets, daily range): BP systolic 106–139; BP diastolic 72–86; PULSE 70–94; RESP 10–22; TEMP 36.7; O2SAT 91–96
--- NOTE | 2023-12-28 19:45 | RT.EKG_ITS ---
APPROVED REPORT Exam: Resting ECG Reason for Exam: CHEST PAIN Patient Location: E HR:85 bpm ECG Measurements Heart Rate 85 AXIS AR 134 P -5 QRSd 74 QRS 17 QT 348 T 30 QTc 415 Conclusion Sinus rhythm. 85 normal axis no stemi
--- NOTE | 2023-12-28 20:15 | DI.RAD_ITS ---
Exam(s) XR CHEST 2V PA LATERAL EXAM: XR CHEST 2V PA LATERAL CLINICAL HISTORY: chest pain. TECHNIQUE: 2D digital imaging was performed. COMPARISON: CR,XR XR CHEST 2V PA LATERAL from 10/22/2023 FINDINGS: 2 views: Heart size is normal. The mediastinum is not widened. Lungs are clear. No infiltrates nor pleural effusions. IMPRESSION: No acute pulmonary findings. DATA REPOSITORY: RADIATION DOSE DELIVERED:
[2023-12-28 20:26] LABS: Abs Immature Grans 0.01 10^3/uL (0.0-0.06); Absolute Basophil Count 0.03 10^3/uL (0.0-0.2); Absolute Eosinophil Count 0.15 10^3/uL (0.0-0.7); Absolute Lymphocyte Count 2.75 10^3/uL (1.2-3.4); Absolute Monocyte Count 0.68 10^3/uL (0.1-0.8); Absolute Neutrophil Count 3.71 10^3/uL (1.2-6.7); Basophils % 0.4 %; HCT 47.4 % (40.0-50.0); Immature Grans % 0.1 %; Lymphocytes % 37.5 %; MCH 30.8 pg (27.0-33.0); MCHC 33.8 % (32.0-36.0); MCV 91 fL (80-95); MPV 9.5 fL (8.0-11.0); Monocytes % 9.3 %; Neutrophils % 50.7 %; Platelet Count 222 10^3/uL (130-400); RDW 12.1 % (11.8-14.1); RDW-SD 40.5 fL; WBC 7.33 10^3/uL (4.4-10.8)
[2023-12-28] MEDS: Aspirin 325 MG TAB PO (20:29)
[2023-12-28] MEDS: ACETAMINOPHEN 1,000 MG/100 ML BTL 400 MG IVPB (20:35)
[2023-12-28] MEDS: Famotidine 20 MG/2 ML VIAL IVP (20:36)
--- NOTE | 2023-12-28 20:43 | ED.GENADUL_ITS ---
Discharge Plan Disposition Patient Disposition: Home Condition: Stable Discharge Details Clinical Impression: Chest pain Primary Care Provider: Unknown,Unknown ED Provider: Estella Ruiz Home Meds and New Rx's Prescriptions: New pantoprazole 20 mg tablet,delayed release (DR/EC) 20 mg PO DAILY Qty: 30 0RF Discharge Instructions Instructions: Chest Pain, Adult ED Additional Instructions: work up tonight is unremarkable for chest pain they should be able to get you a sooner ED follow up in primary care clinic start medication as prescribed to see if this helps HPI General Date/Time Provider Initiated Documentation: 12/28/23 20:18 . Limitations to Documentation: no limitations . Information obtained by: patient . HPI Narrative: 33-year-old gentleman without significant past medical history presents for evaluation of chest pain. He reports that this has been ongoing for the last 3 days. It is intermittent. No exacerbating relieving factors. It is a stabbing pain in the middle of his chest with a burning sensation in the left shoulder. The patient patient reports that he is sweaty right now because he states that it is hot. But denies any sweatiness with his chest pain for the last few days. He does report that he has been having cold-like symptoms for several days. He has a smoking history but no diagnosis of diabetes or hypertension. No known family risk factors. Related Data Home Medications ?Medication ?Instructions ?Recorded ?Confirmed pantoprazole 20 mg tablet,delayed 20 mg PO DAILY #30 tabs 12/28/23 release Previous Rx's ?Medication ?Instructions ?Recorded pantoprazole 20 mg tablet,delayed 20 mg PO DAILY #30 tabs 12/28/23 release Allergies Allergy/AdvReac Type Severity Reaction Status Date / Time ibuprofen Allergy Intermediate Nausea Unverified 12/28/23 20:00 risperidone AdvReac Intermediate Nausea Verified 12/28/23 20:00 General Stated Complaint: Chest Pain STEFFANIE: 2 Exam Narrative Exam Narrative: Review of Systems: All systems reviewed & are unremarkable except as noted in HPI and below Well-developed, no acute distress + Diaphoretic NCAT RRR, no murmur Unlabored respiratory effort, clear bilaterally Nondistended abdomen , soft nontender Extremities w/o deformity, no cyanosis, no edema Course Vital Signs Vital signs: Vital Signs Temperature 36.7 C 12/28/23 19:51 Pulse 94 H 12/28/23 19:51 Respiratory Rate 14 12/28/23 19:51 Blood Pressure 123/86 12/28/23 19:51 Pulse Oximetry 94 12/28/23 19:51 Temperature 36.7 C 12/28/23 19:51 Temperature Source Oral 12/28/23 19:51 Pulse 94 H 12/28/23 19:51 Respiratory Rate 14 12/28/23 19:51 Respiratory Effort Normal 12/28/23 20:01 Blood Pressure 123/86 12/28/23 19:51 Pulse Oximetry 94 12/28/23 19:51 Oxygen Delivery Method Room Air 12/28/23 19:51 Oxygen Flow Rate 0 12/28/23 19:51 Pain Level 7 12/28/23 19:51 Comment 9/10 at worse 12/28/23 19:51 Lab/Test Results Lab/Test Results: Laboratory Tests Range/Units 12/28/23 20:17 WBC (4.4-10.8) 10^3/uL 7.33 RBC (4.36-5.78) 10^6/uL 5.20 Hgb (13.5-17.5) g/dL 16.0 Hct (40.0-50.0) % 47.4 MCV (80-95) fL 91 MCH (27.0-33.0) pg 30.8 MCHC (32.0-36.0) % 33.8 RDW (11.8-14.1) % 12.1 Plt Count (130-400) 10^3/uL 222 MPV (8.0-11.0) fL 9.5 Immature Gran % % 0.1 Neutrophils % % 50.7 Lymphocytes % % 37.5 Monocytes % % 9.3 Eosinophils % % 2.0 Basophils % % 0.4 Nucleated RBC % (0.0-0.3) % 0.0 Absolute Neutrophils (1.2-6.7) 10^3/uL 3.71 Absolute Lymphocytes (1.2-3.4) 10^3/uL 2.75 Absolute Monocytes (0.1-0.8) 10^3/uL 0.68 Absolute Eosinophils (0.0-0.7) 10^3/uL 0.15 Absolute Basophils (0.0-0.2) 10^3/uL 0.03 Medical Decision Making Emergent evaluation of chest pain. Symptoms have been ongoing for several days. Intermittent without exacerbating or relieving factors. The diaphoresis is asked concerning to me. He is a tobacco abuser. His EKG was reviewed and independently interpreted, sinus 85 normal axis, normal ST segments. The patient does have risk factors including diabetes, current smoker. Will get blood work, no focal consolidation, normal heart size, no pulmonary edema or pleural effusion with telemetry monitoring. Lab work reviewed. There is no leukocytosis or anemia. He has no derangement of his metabolic panel. Slight elevation in AST and ALT likely secondary to chronic alcohol use. Troponin is 4. Given our pathway and risk factors. At this time do not feel the patient needs a second troponin. The patient will be discharged home and I do recommend that he start a PPI. He does have AN appointment scheduled in February to establish care with PCP, but we will reach out to see if he can get a sooner ER follow-up appointment for reevaluation if symptoms persist. Quality:SDOH Health Related Social Needs: No Data to Display PFSH All Active Problems (Updated 12/28/23 @ 21:24 by Estella Ruiz MD) Chest pain (Acute) Major depression (Chronic) Lumbosacral strain (Acute) Neurogenic claudication (Acute) Low back pain (Acute) Right sided sciatica Episodic ataxia with slurred speech (Acute) Medical History Petechial rash left lower leg No significant past medical history Surgical History No significant past surgical history Social History Smoking/Tobacco Use Status: Current every day Tobacco Type: cigarettes and e- cigarettes Tobacco: How many years used: 15 Quit status: considering quitting Second Hand Exposure: Yes Smoking risk assessment performed?: Yes Alcohol Intake: current Alcohol Intake frequency: 3 or more drinks per day Alcohol type: beer Drug use: Daily Substance use type: marijuana Housing: house Communication Needs: None Pets and animals: Yes Pets and animals: dog(s) Sexually active: No Do you think of yourself as: straight/heterosexual Current gender identity: male What is your relationship status?: never How often do you talk on the phone with friends or family?: three or more times per week How often do you get together with friends or relatives?: three or more times per week How often do you attend lutheran or worship services?: 1-3 times per year Do you belong to any clubs or organized social groups?: no Panel score (0-1 are the most socially isolated patients): 1 What type of physical activity do you participate in: none Frequency: does not exercise Miya/Denominational: None Special miya needs: No Seatbelt use: sometimes Helmet use: Yes Helmet use: sometimes 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
[2023-12-28 20:44] LABS: ALT 85 U/L (16-63); AST 53 U/L (15-37); Albumin 3.8 g/dL (3.4-5.0); Alkaline Phosphatase 76 U/L (46-116); Anion Gap 9.8 mmol/L (3-11); BUN 11 mg/dL (7-18); Bilirubin, Total 0.29 mg/dL (0.2-1.0); CO2 25.2 mmol/L (21.0-32.0); CREATININE 0.8 mg/dL (0.70-1.30); Calcium 9.5 mg/dL (8.5-10.1); Chloride 100 mmol/L (98-107); Estimated GFR 120.59 (mL/min/1.73m2); Glucose 94 mg/dL (74-106); Magnesium 1.8 mg/dL (1.8-2.4); Potassium 4.1 mmol/L (3.5-5.1); Sodium 135 mmol/L (136-145); Total Protein 7.7 g/dL (6.4-8.2); Troponin I 4 ng/L (<or=76)
--- NOTE | 2023-12-28 22:03 | DI.VRAD_ITS ---
PROCEDURE INFORMATION: Exam: XR Chest Exam date and time: 12/28/2023 8:30 PM Age: 33 years old Clinical indication: Other: Chest pain TECHNIQUE: Imaging protocol: Radiologic exam of the chest. Views: 2 views. COMPARISON: CR XR CHEST 2V PA LATERAL 10/22/2023 11:47 PM FINDINGS: Lungs: Unremarkable. No consolidation. Pleural spaces: Unremarkable. No pleural effusion. No pneumothorax. Heart/Mediastinum: Unremarkable. No cardiomegaly. Bones/joints: Unremarkable. IMPRESSION: Normal chest x-ray. Dictated and Authenticated by: Fawad Lynn MD. Ordering:[facility] Joseph Larkin MD
== END 2023-12-28 21:33 | disposition home or self-care (01) ==
PROVIDERS: Emergency Provider Emergency Medicine
DX: R07.9 Chest pain, unspecified (principal)
CPT/HCPCS: 80053; 93005; 96365; 96375; 99285; 71046; 83735; 84484; 85025; 93010; 99284; J0131

== ENCOUNTER 2024-01-28 17:34 | Emergency (ER) | payer MEDICAID, SELFPAY ==
[2024-01-28 17:38] VITALS: BP 147/92; PULSE 96; RESP 15; TEMP 36.9; O2SAT 98
--- NOTE | 2024-01-28 17:45 | DI.RAD_ITS ---
Exam(s) XR ANKLE LT COMPLETE EXAM: XR ANKLE LT COMPLETE CLINICAL HISTORY: ankle pain post trauma. TECHNIQUE: 2D digital imaging was performed. COMPARISON: No exams were available for comparison FINDINGS: 3 views No evidence of fracture nor widening of the ankle mortise. Talar dome unremarkable. Bone density no rmal. No osseous lesions. No prominent soft tissue swelling. IMPRESSION: No acute osseous findings in the ankle. DATA REPOSITORY: RADIATION DOSE DELIVERED:
--- NOTE | 2024-01-28 17:45 | DI.RAD_ITS ---
Exam(s) XR TIB/FIB LT EXAM: XR TIB/FIB LT CLINICAL HISTORY: pain post trauma. TECHNIQUE: 2D digital imaging was performed. COMPARISON: No exams were available for comparison FINDINGS: Two views No evidence of fracture. Bone density normal. No osseous lesions. No radiopaque foreign bodies. N o gas in the soft tissues. IMPRESSION: No acute osseous findings DATA REPOSITORY: RADIATION DOSE DELIVERED:
[2024-01-28] MEDS: Cyclobenzaprine 10 MG TAB, 3 TABS/BTL PO (18:21)
[2024-01-28] MEDS: Acetaminophen 500 MG TAB 1000 MG PO (18:21)
[2024-01-28] MEDS: Cyclobenzaprine 10 MG TAB (18:22)
--- NOTE | 2024-01-28 18:31 | ED.GENADUL_ITS ---
Discharge Plan Disposition Patient Disposition: Home Condition: Stable Discharge Details Clinical Impression: Ankle strain, Contusion of calf Primary Care Provider: Db Duran ED Provider: Raiza Olivier Home Meds and New Rx's Prescriptions: New cyclobenzaprine 10 mg tablet 10 mg PO TID PRNQty: 14 0RF Continued pantoprazole [Protonix] 40 mg tablet,delayed release (DR/EC) 40 mg PO DAILY Qty: 30 0RF Discharge Instructions Instructions: Muscle Strain (DC) Additional Instructions: Ice, Tylenol as needed for discomfort, elevate, weightbearing as tolerated, repeat assessment in 1 week with persistent pain. return earlier with dramatically worsening pain, skin discoloration, worsening numbness, or should any new concerns arise Referrals: Db Duran DO [Primary Care Provider] - 2 days Discharge Data Discharge Date/Time-TO BE ENTERED AT DEPARTURE: 01/28/24 18:37 HPI General Date/Time Provider Initiated Documentation: 01/28/24 17:35 . HPI Narrative: 33-year-old male presenting with injury to left ankle and castellanos. 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 States he has pain with any attempted ambulation. Denies numbness or tingling. Denies any additional traumas. Otherwise fairly healthy. Denies history of coagulopathy. Related Data Home Medications ?Medication ?Instructions ?Recorded ?Confirmed pantoprazole 40 mg tablet,delayed 40 mg PO DAILY reflux #30 tabs 01/19/24 01/28/24 release (Protonix) cyclobenzaprine 10 mg tablet 10 mg PO TID PRN #14 tabs 01/28/24 Previous Rx's ?Medication ?Instructions ?Recorded pantoprazole 40 mg tablet,delayed 40 mg PO DAILY reflux #30 tabs 01/19/24 release (Protonix) cyclobenzaprine 10 mg tablet 10 mg PO TID PRN #14 tabs 01/28/24 Allergies Allergy/AdvReac Type Severity Reaction Status Date / Time ibuprofen Allergy Intermediate Nausea Unverified 01/28/24 17:43 risperidone AdvReac Intermediate Nausea Verified 01/28/24 17:43 General Stated Complaint: Orthopedic STEFFANIE: 4 Exam Narrative Exam Narrative: Left ankle and castellanos with tenderness, predominantly along the medial aspect of in ner lower leg. No firmness, strength or sensation change. No obvious visible evidence of trauma. Neurovascularly intact, no tenderness to right knee, tenderness to right ankle, no tenderness to right foot. Remains neurovascularly intact throughout this encounter Course Vital Signs Vital signs: Vital Signs Temperature 36.9 C 01/28/24 17:38 Pulse 96 H 01/28/24 17:38 Respiratory Rate 15 01/28/24 17:38 Blood Pressure 147/92 H 01/28/24 17:38 Pulse Oximetry 98 01/28/24 17:38 Temperature 36.9 C 01/28/24 17:38 Temperature Source Oral 01/28/24 17:38 Pulse 96 H 01/28/24 17:38 Respiratory Rate 15 01/28/24 17:38 Respiratory Effort Normal 01/28/24 17:41 Blood Pressure 147/92 H 01/28/24 17:38 Blood Pressure Position Sitting 01/28/24 17:38 Pulse Oximetry 98 01/28/24 17:38 Oxygen Delivery Method Room Air 01/28/24 17:38 Oxygen Flow Rate 0 01/28/24 17:38 Pain Level 8 01/28/24 17:55 Medical Decision Making 33-year-old male presenting with trauma to right lower extremity. No clinical findings suggestive of compartment syndrome clinically. Patient had x-ray of ankle and tib-fib which did not show evidence of acute abnormality per my interpretation, pending formal radiology review. Remains neurovascularly intact. Placed in [place] wrap for comfort and given crutches. Return precautions reviewed and patient expressed understanding. Quality:SDOH Health Related Social Needs: No Data to Display PFSH All Active Problems (Updated 01/28/24 @ 18:27 by ZAHEER Ivory) Contusion of calf (Acute) Ankle strain (Acute) Liver enzyme elevation (Acute) Family history of diabetes mellitus (DM) (Acute) Major depression (Chronic) Lumbosacral strain (Acute) Neurogenic claudication (Acute) Low back pain (Acute) Right sided sciatica Episodic ataxia with slurred speech (Acute) Medical History Petechial rash left lower leg No significant past medical history Surgical History No significant past surgical history Social History (Updated 01/19/24 @ 08:53 by Anni Avalos) Smoking/Tobacco Use Status: Current every day Tobacco Type: cigarettes and e- cigarettes Tobacco: How many years used: 20 Smokeless tobacco user: chewing tobacco Quit status: considering quitting Smoking risk assessment performed?: Yes Alcohol Intake: current Alcohol Intake frequency: 3 or more drinks per day Alcohol type: beer Drug use: Daily Substance use type: marijuana Adopted: No Caregiver/Support person: No Foster care: No Household members: family Housing: house Number of Children: 0 number of grandchildren: 0 Communication Needs: None Education Level: high school Do you need help understanding health information?: Often 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 Pets and animals: Yes (1) Pets and animals: dog(s) Sexually active: No Do you think of yourself as: straight/heterosexual Current gender identity: male What is your relationship status?: never How often do you talk on the phone with friends or family?: once per week How often do you get together with friends or relatives?: once per week How often do you attend spiritism or pentecostalism services?: 1-3 times per year Do you belong to any clubs or organized social groups?: no Panel score (0-1 are the most socially isolated patients): 0 What type of physical activity do you participate in: none Duration: < 15 minutes/day Frequency: 1-2 times per week Miya/Jewish: None Special miya needs: No Seatbelt use: sometimes Helmet use: Yes Helmet use: sometimes Drive 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 or ride w/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 Do you feel safe at home: Yes Do you feel safe in your relationship?: Yes PAWSS Have you Been Recently Intoxicated or Drunk Within the Last 30 days?: No Have you Ever Experienced Previous Episodes of Alcohol Withdrawal?: No Have you ever Experienced Withdrawal Seizures?: No Have you ever Experienced Delirium Tremens(DT)s?: No Have you ever undergone Alcohol Rehabilitation Treatment (i.e, inpt ot outpatient treatment programs)?: No Have you ever Experienced Blackouts?: No Have you ever Combined Alcohol with other Downers within the last 90 days?: No Have you ever Combined Alcohol with any other Substance of Abuse during the last 90 days?: No Positive Blood Alcohol level on Presentation? [PCS.BAL]: No Evidence of Increased Autonomic Activity (i.e. HR>120, tremor, sweating, agitation, nausea)?: No Result: 0
--- NOTE | 2024-01-28 18:48 | DI.VRAD_ITS ---
PROCEDURE INFORMATION: Exam: XR Left Ankle Exam date and time: 01/28/2024 6:02 PM Age: 33 years old Clinical indication: Injury or trauma; Other: Injury working footabll earlier today; Blunt trauma; Ankle; Left TECHNIQUE: Imaging protocol: Radiologic exam of the left ankle. Views: 3 or more views. COMPARISON: No relevant prior studies available. FINDINGS: Bones/joints: Unremarkable. Soft tissues: Unremarkable. IMPRESSION: No evidence for acute bony injury. If clinical symptoms persist recommend followup film in 7-10 days. Dictated and Authenticated by: Adore Johnson MD. Ordering:RIVERA Eastman MD
--- NOTE | 2024-01-28 18:50 | DI.VRAD_ITS ---
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 Views: 2 views. COMPARISON: CR XR ANKLE LT COMPLETE 28/01/2024 18:02 FINDINGS: Limitations: The ankle was incompletely visualized on the films of the tibia and fibula. The ankle was visualized on a 2nd study of the ankle. Bones/joints: Unremarkable. Soft tissues: Unremarkable. IMPRESSION: No evidence for acute bony injury. If clinical symptoms persist recommend followup film in 7-10 days. Dictated and Authenticated by: Adore Johnson MD. Ordering:RIVERA Eastman MD
== END 2024-01-28 18:37 | disposition home or self-care (01) ==
PROVIDERS: Emergency Provider Physician Assistant; PCP Family Medicine
DX: S96.812A Strain of other specified muscles and tendons at ankle and foot level, left foot, initial encounter (principal); S80.12XA Contusion of left lower leg, initial encounter; W03.XXXA Other fall on same level due to collision with another person, initial encounter; Y93.61 Activity, american tackle football; Y92.321 Football field as the place of occurrence of the external cause
CPT/HCPCS: 99283; 73590; 73610

== ENCOUNTER 2024-10-13 11:10 | Emergency (ER) | payer MEDICAID, SELFPAY ==
[2024-10-13 11:14] VITALS: BP 147/94; PULSE 107; RESP 18; TEMP 36.6; O2SAT 98
[2024-10-13] MEDS: Normal Saline 1,000 ML 1000 ML IV (11:44)
[2024-10-13] MEDS: Ondansetron 4 MG/2 ML VIAL IVP (11:44)
[2024-10-13 11:46] LABS: Abs Immature Grans 0.04 10^3/uL (0.0-0.06); HCT 48.7 % (40.0-50.0); HGB 16.7 g/dL (13.5-17.5); Immature Grans % 0.4 %; MCH 30.0 pg (27.0-33.0); MCHC 34.3 % (32.0-36.0); MCV 88 fL (80-95); MPV 8.8 fL (8.0-11.0); Platelet Count 280 10^3/uL (130-400); RBC 5.56 10^6/uL (4.36-5.78); RDW 12.1 % (11.8-14.1); RDW-SD 38.8 fL; WBC 10.18 10^3/uL (4.4-10.8)
[2024-10-13 12:02] LABS: ALT 65 U/L (16-63); AST 34 U/L (15-37); Albumin 4.3 g/dL (3.4-5.0); Alkaline Phosphatase 80 U/L (46-116); Anion Gap 11.6 mmol/L (3-11); BUN 15 mg/dL (7-18); Bilirubin, Total 0.9 mg/dL (0.2-1.0); CO2 29.4 mmol/L (21.0-32.0); Calcium 9.7 mg/dL (8.5-10.1); Chloride 101 mmol/L (98-107); Estimated GFR 115.65 (mL/min/1.73m2); Glucose 99 mg/dL (74-106); Lipase 18 U/L (<78); Magnesium 1.8 mg/dL (1.8-2.4); Potassium 3.4 mmol/L (3.5-5.1); Sodium 142 mmol/L (136-145); Total Protein 8.0 g/dL (6.4-8.2)
[2024-10-13 12:29] LABS: Glucose Negative (Negative)
--- NOTE | 2024-10-13 13:09 | W.ED.GENAD ---
Discharge Plan Disposition Patient Disposition: Home Discharge Details Clinical Impression: Nausea vomiting and diarrhea Primary Care Provider: Db Duran ED Provider: Iglesia Navarro Home Meds and New Rx's Prescriptions: New ondansetron 4 mg tablet,disintegrating 4 mg PO Q8H PRN (Reason: nausea and vomiting) Qty: 10 0RF No Action cyanocobalamin (vitamin B-12) 1,000 mcg capsule 1,000 mcg PO DAILY Qty: 90 3RF pantoprazole [Protonix] 40 mg tablet,delayed release (DR/EC) 40 mg PO DAILY Qty: 90 3RF fluoxetine 40 mg capsule 40 mg PO DAILY Qty: 90 3RF acamprosate 333 mg tablet,delayed release (DR/EC) 333 mg PO BID Qty: 180 3RF Rx Instructions: administer with mid-day and evening meals cyclobenzaprine 10 mg tablet 10 mg PO TID PRN (Reason: muscle spasm) Qty: 270 3RF Discharge Instructions Instructions: Diarrhea, Adult ED, Nausea and Vomiting, Adult ED Additional Instructions: Please make sure that you stay well-hydrated and you may slowly advance food intake as tolerated. You may take the nausea medication as needed and as prescribed. Return to the emergency department for any new or significant worsening of symptoms otherwise follow-up your primary care provider if not improving over the next week Stand Alone Forms: Work Release HPI General Mode of arrival: ambulatory. Date/Time Provider Initiated Documentation: 10/13/24 11:26. Limitations to Documentation: no limitations. Information obtained by: patient and RN notes reviewed. History of Present Illness 34 year old M presents to the emergency department with the chief complaint of Nausea vomiting diarrhea, described as moderate, Patient started experiencing this day(s) (1) and it has been constant. No relieving factors improve symptom(s), Other factors that worsen symptoms (Significant heat exposure and low fluid intake) . Patient notes nausea/vomiting. Patient did receive the following treatments prior to arrival, none Related Data Home Medications ?Medication ?Instructions ?Recorded ?Confirmed pantoprazole 40 mg tablet,delayed 40 mg PO DAILY reflux #90 tabs 02/23/24 10/13/24 release (Protonix) acamprosate 333 mg tablet,delayed 333 mg PO BID #180 tabs 03/20/24 10/13/24 release Held on 10/13/24. Instructions: Pt Stopped/Never Started cyclobenzaprine 10 mg tablet 10 mg PO TID PRN muscle spasm #270 03/20/24 10/13/24 Held on 10/13/24. tabs Instructions: Pt Stopped/Never Started fluoxetine 40 mg capsule 40 mg PO DAILY #90 caps 03/20/24 10/13/24 cyanocobalamin (vitamin B-12) 1,000 mcg PO DAILY #90 caps 05/18/24 10/13/24 1,000 mcg capsule ondansetron 4 mg disintegrating 4 mg PO Q8H PRN nausea and 10/13/24 tablet vomiting #10 tabs Previous Rx's ?Medication ?Instructions ?Recorded pantoprazole 40 mg tablet,delayed 40 mg PO DAILY reflux #90 tabs 02/23/24 release (Protonix) acamprosate 333 mg tablet,delayed 333 mg PO BID #180 tabs 03/20/24 release Held on 10/13/24. Instructions: Pt Stopped/Never Started cyclobenzaprine 10 mg tablet 10 mg PO TID PRN muscle spasm #270 03/20/24 Held on 10/13/24. tabs Instructions: Pt Stopped/Never Started fluoxetine 40 mg capsule 40 mg PO DAILY #90 caps 03/20/24 cyanocobalamin (vitamin B-12) 1,000 mcg PO DAILY #90 caps 05/18/24 1,000 mcg capsule ondansetron 4 mg disintegrating 4 mg PO Q8H PRN nausea and 10/13/24 tablet vomiting #10 tabs Allergies Allergy/AdvReac Type Severity Reaction Status Date / Time ibuprofen Allergy Intermediate Nausea Unverified 10/13/24 11:17 risperidone AdvReac Intermediate Nausea Verified 10/13/24 11:17 General Stated Complaint: Abd Prob STEFFANIE: 3 Review of Systems Constitutional Constitutional: Reports chills, Denies fever(s) and Reports poor appetite Cardiovascular Cardiovascular: Denies chest pain and Denies dyspnea Respiratory Respiratory: Denies cough and Denies dyspnea Gastrointestinal Gastrointestinal: Reports as per HPI, Reports abdominal pain, Denies melena, Denies change in bowel habits, Denies constipation, Reports diarrhea, Reports nausea and Reports vomiting Genitourinary Genitourinary: Denies hematuria, Denies difficulty urinating, Denies urinary hesitancy, Denies urinary incontinence and Denies urinary urgency Integumentary/Breasts Skin/Breast: Denies rash Exam Const General: cooperative Orientation: alert, awake and oriented x3 Resp Effort & Inspection: normal respiratory effort and able to speak in complete sentences Auscultation: clear to auscultation bilaterally Cardio Rate: regular rate Rhythm: regular rhythm Heart Sounds: S1 normal and S2 normal GI Inspection: obesity Palpation: soft, not firm, no guarding, no masses, no pulsatile masses, not rigid and tender in the epigastrum; not at McBurney's point, Cole's sign negative, psoas sign negative and with no rebound tenderness Auscultation: normal bowel sounds Back/Spine/Pelvis Back: no CVA tenderness Neuro General: patient alert, patient awake, patient oriented x3, gait normal and moves all extremities Course Vital Signs Vital signs: Vital Signs Temperature 36.6 C 10/13/24 11:14 Pulse 107 H 10/13/24 11:14 Respiratory Rate 18 10/13/24 11:14 Blood Pressure 147/94 H 10/13/24 11:14 Pulse Oximetry 98 10/13/24 11:14 Temperature 36.6 C 10/13/24 11:14 Temperature Source Oral 10/13/24 11:14 Pulse 107 H 10/13/24 11:14 Respiratory Rate 18 10/13/24 11:14 Blood Pressure 147/94 H 10/13/24 11:14 Pulse Oximetry 98 10/13/24 11:14 Oxygen Delivery Method Room Air 10/13/24 11:14 Oxygen Flow Rate 0 10/13/24 11:14 Pain Level 6 10/13/24 11:45 Lab/Test Results Lab/Test Results: Laboratory Tests Range/Units 10/13/24 10/13/24 11:38 12:13 WBC (4.4-10.8) 10^3/uL 10.18 RBC (4.36-5.78) 10^6/uL 5.56 Hgb (13.5-17.5) g/dL 16.7 Hct (40.0-50.0) % 48.7 MCV (80-95) fL 88 MCH (27.0-33.0) pg 30.0 MCHC (32.0-36.0) % 34.3 RDW (11.8-14.1) % 12.1 Plt Count (130-400) 10^3/uL 280 MPV (8.0-11.0) fL 8.8 Immature Gran % % 0.4 Neutrophils % % 67.7 Lymphocytes % % 23.6 Monocytes % % 7.8 Eosinophils % % 0.2 Basophils % % 0.3 Nucleated RBC % (0.0-0.3) % 0.0 Absolute Neutrophils (1.2-6.7) 10^3/uL 6.90 H Absolute Lymphocytes (1.2-3.4) 10^3/uL 2.40 Absolute Monocytes (0.1-0.8) 10^3/uL 0.79 Absolute Eosinophils (0.0-0.7) 10^3/uL 0.02 Absolute Basophils (0.0-0.2) 10^3/uL 0.03 Sodium (136-145) mmol/L 142 Potassium (3.5-5.1) mmol/L 3.4 L Chloride (98-107) mmol/L 101 Carbon Dioxide (21.0-32.0) mmol/L 29.4 Anion Gap (3-11) mmol/L 11.6 H BUN (7-18) mg/dL 15 Creatinine (0.70-1.30) mg/dL 0.9 Est GFR (CKD-EPI 2020) (mL/min/1.73m2) 115.65 Glucose (74-106) mg/dL 99 Calcium (8.5-10.1) mg/dL 9.7 Magnesium (1.8-2.4) mg/dL 1.8 Total Bilirubin (0.2-1.0) mg/dL 0.9 AST (15-37) U/L 34 ALT (16-63) U/L 65 H Alkaline Phosphatase (46-116) U/L 80 Total Protein (6.4-8.2) g/dL 8.0 Albumin (3.4-5.0) g/dL 4.3 Lipase (<78) U/L 18 Urine Color (Yellow) Yellow Urine Clarity (Clear) Clear Urine pH (5-8) 6.0 Ur Specific Merrill (1.005-1.025) 1.025 Urine Protein (Neg-Trace) mg/dL 30 H Urine Ketones (Negative) mg/dL Trace H Urine Blood (Negative) Trace-intact H Urine Nitrite (Negative) Negative Urine Bilirubin (Negative) Small H Urine Urobilinogen (Up to 0.2) mg/dL 0.2 Ur Leukocyte Esterase (Negative) Negative Urine Glucose (Negative) mg/dL Negative Medical Decision Making Patient presenting to the emergency department for chief complaint of nausea vomiting diarrhea. Patient reports that he was working in the kitchen yesterday and it was constantly over 90 degrees. He also had low fluid intake yesterday which he feels has contributed to the nausea vomiting and diarrhea. Patient does state daily alcohol use but has not drank in the last 2 to 3 days due to not feeling well, does have daily marijuana usage but has not changed habits or supply recently, states some chills but denies fever denies any other associated symptoms or contact with others who have similar symptoms. Physical exam shows epigastric discomfort to palpation otherwise normal active bowel sounds negative Cole sign, no McBurney's point tenderness, no psoas sign, nonsurgically abdominal assessment, patient does have some tachycardia but is not hypotensive febrile or hypoxic. Exam is otherwise unremarkable. Suspect dehydration secondary to heat exposure versus benign infectious GI illness. Considered pancreatitis but given no significant left upper quadrant discomfort have lower suspicion of this will but will plan on checking labs giving Zofran and fluids pending results. Reviewed patient's labs and CBC is overall unremarkable without any emergent findings, CMP does show potassium of 3.4 which we will orally replete and slightly elevated anion gap of 11.6 but otherwise labs look appropriate. ALT is slightly elevated at 65 but this is similar to previous findings given patient's alcohol abuse. Lipase within normal range urinalysis with protein ketones and trace blood but no signs of infection. Reassessed patient who was able to tolerate p.o. potassium and he did state that he has not had any further vomiting episodes but still feels nauseous. Will give Zofran and plan to discharge with oral hydration recommendations along with return and follow-up precautions. After discussion of diagnosis and plan of care patient has no further needs, questions, or concerns and states clear understanding to return to the emergency department for any worsening symptoms. This documentation was generated using [employer] system, please disregard any oddities of phrase or misspellings. Lab Data Lab results reviewed: Yes I reviewed the patient's lab results. Quality:SDOH Health Related Social Needs: Health related social needs details Below PFSH All Active Problems (Updated 10/13/24 @ 13:15 by Iglesia Navarro, JUNIOR SYSTEMS ANALYST) Nausea vomiting and diarrhea (Acute) Obesity (Chronic) Cubital tunnel syndrome, bilateral (Acute) Meralgia paresthetica of right side (Acute) Alcohol abuse (Chronic) Liver enzyme elevation (Acute) Family history of diabetes mellitus (DM) (Acute) Major depression (Chronic) Lumbosacral strain (Acute) Neurogenic claudication (Acute) Low back pain (Acute) Right sided sciatica Episodic ataxia with slurred speech (Acute) Medical History Petechial rash left lower leg No significant past medical history Surgical History No significant past surgical history Social History Smoking/Tobacco Use Status: Current every day Tobacco Type: cigarettes and e-cigarettes Tobacco: How many years used: 20 Smokeless tobacco user: chewing tobacco Quit status: considering quitting Smoking risk assessment performed?: Yes Alcohol Intake: current Alcohol Intake frequency: 3 or more drinks per day Alcohol type: beer Drug use: Daily Substance use type: marijuana Adopted: No Caregiver/Support person: No Foster care: No Household members: family Housing: house Number of Children: 0 number of grandchildren: 0 Communication Needs: None Education Level: high school Do you need help understanding health information?: Often current occupation: [employer] Floor [employer] Pets and animals: Yes (1) Pets and animals: dog(s) Sexually active: No Do you think of yourself as: straight/heterosexual Current gender identity: male What is your relationship status?: never How often do you talk on the phone with friends or family?: once per week How often do you get together with friends or relatives?: once per week How often do you attend sabianism or caodaism services?: 1-3 times per year Do you belong to any clubs or organized social groups?: no Panel score (0-1 are the most socially isolated patients): 0 What type of physical activity do you participate in: none Duration: < 15 minutes/day Frequency: 1-2 times per week Miya/Yazidi: None Special miya needs: No Seatbelt use: sometimes Helmet use: Yes Helmet use: sometimes 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
[2024-10-13 13:13] LABS: C & S Indicated? No; RBC 0-2 HPF (0-2); WBC Negative HPF (0-5)
[2024-10-13] MEDS: Potassium Chloride Liquid 20 MEQ PKT PO (13:25)
[2024-10-13] MEDS: Ondansetron O.D.T. 4 MG TABEF PO (13:26)
== END 2024-10-13 13:41 | disposition home or self-care (01) ==
PROVIDERS: Emergency Provider Nurse Practitioner Family; PCP Family Medicine
DX: R11.2 Nausea with vomiting, unspecified (principal); R19.7 Diarrhea, unspecified
CPT/HCPCS: 99284; 99283; 96374; 80053; 83690; 96361; 81003; 81015; 83735; 85025; J2405

== ENCOUNTER 2024-11-02 21:17 | Emergency (ER) | payer MEDICAID, SELFPAY ==
[2024-11-02 21:20] VITALS: BP 130/83; PULSE 98; RESP 18; TEMP 36.6; O2SAT 96
--- NOTE | 2024-11-02 21:30 | DI.CT_ITS ---
Exam(s) CT HEAD CERVICAL SPINE WO EXAM: CT HEAD CERVICAL SPINE WO CLINICAL HISTORY: fall, LOC, etoh. TECHNIQUE: Imaging Protocol: Axial computed tomography images with coronal and sagittal reformatted images were created and reviewed COMPARISON: No exams were available for comparison FINDINGS: BRAIN: There are no skull fractures nor fluid in the visualized paranasal sinuses. There is no evidence of intracranial hemorrhage, mass effect, or shift of midline structures. There are no extra-axial fluid collections. The ventricles are not enlarged or shifted and there is no blood within the ventricular system nor within the basal cisterns. CERVICAL SPINE: There is motion artifact visible. There is no evidence of obvious fracture nor listhesis. No significant prevertebral soft tissue swelling. There is mild disc space narrowing at C5-6 and C6-7 levels. There is no significant facet joint malalignment. No significant osseous lesions evident. IMPRESSION: No acute intracranial findings on this noninfused CT scan of the brain. No evidence of cervical spine fracture, malalignment, nor acute compromise of the cervical spinal canal. RADIATION DOSE DELIVERED: 1,379.81mGy.cm Total DLP DATA REPOSITORY: All CT scans at this facility are submitted to the National Radiology Data Registry (NRDR) Dose Index Registry (DIR) with the [employer] (ACR). RADIATION OPTIMIZATION: All CT scans at this facility use at least one of these dose optimization techniques: automated exposure control; mA and/or kV adjustment per patient size (includes targeted exams where dose is matched to clinical indication); or iterative reconstruction.
--- NOTE | 2024-11-02 21:30 | DI.RAD_ITS ---
Exam(s) XR LUMBAR SPINE COMPLETE EXAM: XR LUMBAR SPINE COMPLETE CLINICAL HISTORY: fall, back pain. TECHNIQUE: 2D digital imaging was performed. COMPARISON: No exams were available for comparison FINDINGS: Five views: There is no evidence of obvious fracture nor listhesis. However, on the lateral view there is no oblique line at the level the L3 lamina, not evident on the other images and possibly representing artifact. All of the disc spaces exhibit normal height and facet joints appear unremarkable as do the sacroiliac joints. There is no scoliosis. Bone density normal. No osseous lesion. IMPRESSION: Subtle oblique linear lucency seen only on the lateral view projected over the lamina of L3 correlation with site of tenderness is recommended. If clinically indicated further study with CT scan to this area can be performed. DATA REPOSITORY: RADIATION DOSE DELIVERED:
--- NOTE | 2024-11-02 21:30 | DI.RAD_ITS ---
Exam(s) XR PELVIS AP EXAM: XR PELVIS AP CLINICAL HISTORY: fall, back pain. TECHNIQUE: 2D digital imaging was performed. COMPARISON: No exams were available for comparison FINDINGS: Single AP view of the pelvis. There is no evidence of pelvic nor hip fractures. No diastasis of the SI joints and symphysis pubis. No incidental osseous lesions. No radiopaque foreign bodies. IMPRESSION: No acute osseous findings in the pelvis and hips. DATA REPOSITORY: RADIATION DOSE DELIVERED:
--- NOTE | 2024-11-02 22:37 | DI.VRAD_ITS ---
PROCEDURE INFORMATION: Exam: CT Head Without Contrast Exam date and time: 11/02/2024 10:07 PM Age: 34 years old Clinical indication: Injury or trauma; Blunt trauma (contusions or hematomas); With loss of consciousness; Not specified; Injury date: 11/02/24; Fall, loc, etho TECHNIQUE: Imaging protocol: Computed tomography of the head without contrast. Radiation optimization: All CT scans at this facility use at least one of these dose optimization techniques: automated exposure control; mA and/or kV adjustment per patient size (includes targeted exams where dose is matched to clinical indication); or iterative reconstruction. COMPARISON: No relevant prior studies available. FINDINGS: Brain: Normal. No hemorrhage. Unremarkable white matter. No mass effect. Cerebral ventricles: No ventriculomegaly. Paranasal sinuses: Visualized sinuses are unremarkable. No fluid levels. Mastoid air cells: Visualized mastoid air cells are well aerated. Bones: Unremarkable. No acute fracture. Soft tissues: Unremarkable. IMPRESSION: No acute intracranial abnormality. PROCEDURE INFORMATION: Exam: CT Cervical Spine Without Contrast Exam date and time: 11/02/2024 10:07 PM Age: 34 years old Clinical indication: Injury or trauma; Blunt trauma (contusions or hematomas); With loss of consciousness; Not specified; Injury date: 11/02/24; Fall, loc, etho TECHNIQUE: Imaging protocol: Computed tomography of the cervical spine without contrast. Radiation optimization: All CT scans at this facility use at least one of these dose optimization techniques: automated exposure control; mA and/or kV adjustment per patient size (includes targeted exams where dose is matched to clinical indication); or iterative reconstruction. COMPARISON: CR XR CHEST 2V PA LATERAL 12/28/2023 8:30 PM FINDINGS: Bones: No acute fracture. Mild reversal of the cervical lordosis. No severe spinal canal stenosis. No significant neural foraminal narrowing. Lungs: Lung apices are normal. Soft tissues: Unremarkable. IMPRESSION: No acute cervical spine fracture. Reversal of the cervical lordosis may be positional or related to muscle spasm. Dictated and Authenticated by: Everton Perez MD. Orderin Charline Eastman MD
[2024-11-02] MEDS: Ketorolac 15 MG/ML VIAL 7.5 MG IM (22:49)
[2024-11-02] MEDS: Lidocaine 5% Patch 1 PATCH TP (22:49)
--- NOTE | 2024-11-02 22:52 | DI.VRAD_ITS ---
PROCEDURE INFORMATION: Exam: XR Pelvis Exam date and time: 11/02/2024 10:19 PM Age: 34 years old Clinical indication: Injury or trauma; Blunt trauma (contusions or hematomas); Does not apply; Injury date: 11/02/24; Fall, back pain TECHNIQUE: Imaging protocol: Radiologic exam of the pelvis. Views: 1 or 2 view. COMPARISON: No relevant prior studies available. FINDINGS: Bones/joints: Unremarkable. No acute fracture. Soft tissues: Unremarkable. IMPRESSION: No acute findings. Dictated and Authenticated by: Siomara Mcclure MD. Orderin Charline Eastman MD
--- NOTE | 2024-11-02 22:54 | DI.VRAD_ITS ---
PROCEDURE INFORMATION: Exam: XR Lumbosacral Spine Exam date and time: 11/02/2024 10:21 PM Age: 34 years old Clinical indication: Injury or trauma; Blunt trauma (contusions or hematomas); Injury date: 11/02/24; Fall, back pain TECHNIQUE: Imaging protocol: Radiologic exam of the lumbosacral spine. Views: 4 or 5 views. COMPARISON: CR XR PELVIS AP 11/02/2024 10:19 PM FINDINGS: Bones/joints: Normal. No acute fracture. Normal alignment. Soft tissues: Unremarkable. Gastrointestinal tract: Gaseous distension of loops of bowel could represent ileus or partial small bowel obstruction. IMPRESSION: Gaseous distension of loops of bowel could represent ileus or partial small bowel obstruction. Dictated and Authenticated by: Siomara Mcclure MD. Orderin Charline Eastman MD
--- NOTE | 2024-11-02 22:59 | W.ED.GENAD ---
Discharge Plan Disposition Patient Disposition: Home Discharge Details Clinical Impression: Lumbar contusion, Head injury Primary Care Provider: Db Duran ED Provider: Raiza Olivier Home Meds and New Rx's Prescriptions: New cyclobenzaprine 10 mg tablet 10 mg PO TID PRNQty: 10 0RF Continued cyanocobalamin (vitamin B-12) 1,000 mcg capsule 1,000 mcg PO DAILY Qty: 90 3RF pantoprazole [Protonix] 40 mg tablet,delayed release (DR/EC) 40 mg PO DAILY Qty: 90 3RF fluoxetine 40 mg capsule 40 mg PO DAILY Qty: 90 3RF acamprosate 333 mg tablet,delayed release (DR/EC) 333 mg PO BID Qty: 180 3RF Rx Instructions: administer with mid-day and evening meals cyclobenzaprine 10 mg tablet 10 mg PO TID PRN (Reason: muscle spasm) Qty: 270 3RF ondansetron 4 mg tablet,disintegrating 4 mg PO Q8H PRN (Reason: nausea and vomiting) Qty: 10 0RF Discharge Instructions Instructions: Taking care of bruises, Back Muscle Strain Additional Instructions: You may take Motrin as needed for pain, have written you for Flexeril do not combine this within 8 hours of drinking alcohol as it can make you very sick You have no evidence of fracture or bleeding in your head on your imaging today I have given you a work note for the next 2 days, rest but continue to be ambulatory at home This be reevaluated should you have strength or sensation changes worsening pain, or should any new concerns arise Stand Alone Forms: Work Release Referrals: Db Duran DO [Primary Care Provider, Medicine] Discharge Data Discharge Date/Time-TO BE ENTERED AT DEPARTURE: 11/02/24 23:39 HPI General Date/Time Provider Initiated Documentation: 11/02/24 21:24. HPI Narrative: 34-year-old male with alcoholism and neurogenic claudication reports a fall yesterday. Tripped while walking his dog, hit left side of head and back, possibly lost consciousness. No nausea, vomiting, or headache. Consumed alcohol this evening, took Tylenol at 1300 hours. No history of anticoagulation. Related Data Home Medications ?Medication ?Instructions ?Recorded ?Confirmed pantoprazole 40 mg tablet,delayed 40 mg PO DAILY reflux #90 tabs 11/21/24 08/01/25 release (Protonix) acamprosate 333 mg tablet,delayed 333 mg PO BID #180 tabs 03/20/24 11/02/24 release cyclobenzaprine 10 mg tablet 10 mg PO TID PRN muscle spasm #270 03/20/24 11/02/24 tabs fluoxetine 40 mg capsule 40 mg PO DAILY #90 caps 03/20/24 11/02/24 cyanocobalamin (vitamin B-12) 1,000 mcg PO DAILY #90 caps 05/18/24 11/02/24 1,000 mcg capsule ondansetron 4 mg disintegrating 4 mg PO Q8H PRN nausea and 10/13/24 11/02/24 tablet vomiting #10 tabs cyclobenzaprine 10 mg tablet 10 mg PO TID PRN #10 tabs 11/02/24 Previous Rx's ?Medication ?Instructions ?Recorded pantoprazole 40 mg tablet,delayed 40 mg PO DAILY reflux #90 tabs 02/23/24 release (Protonix) acamprosate 333 mg tablet,delayed 333 mg PO BID #180 tabs 03/20/24 release cyclobenzaprine 10 mg tablet 10 mg PO TID PRN muscle spasm #270 03/20/24 tabs fluoxetine 40 mg capsule 40 mg PO DAILY #90 caps 03/20/24 cyanocobalamin (vitamin B-12) 1,000 mcg PO DAILY #90 caps 05/18/24 1,000 mcg capsule ondansetron 4 mg disintegrating 4 mg PO Q8H PRN nausea and 10/13/24 tablet vomiting #10 tabs cyclobenzaprine 10 mg tablet 10 mg PO TID PRN #10 tabs 11/02/24 Allergies Allergy/AdvReac Type Severity Reaction Status Date / Time ibuprofen Allergy Intermediate Nausea Unverified 11/02/24 21:30 risperidone AdvReac Intermediate Nausea Verified 11/02/24 21:30 General Stated Complaint: Nk/Back Pain STEFFANIE: 3 Exam Narrative Exam Narrative: General Appearance: Alert and oriented, follows commands. Vital signs: Within normal limits. HEENT: Pupils equal, round, reactive to light and accommodation. Tenderness over left orthodox, no hemotympanum. Patent oropharynx, midline uvula, no jaw tenderness. Respiratory: Within normal limits. Back, Musculoskeletal: Bruising around gluteal cleft, lumbar spine tenderness, mild cervical spine tenderness. Skin: Warm and dry, no rash. Neurological: Neurovascularly intact. Slightly slurred speech. Course Vital Signs Vital signs: Vital Signs Temperature 36.6 C 11/02/24 21:20 Pulse 98 H 11/02/24 21:20 Respiratory Rate 18 11/02/24 21:20 Blood Pressure 130/83 11/02/24 21:20 Pulse Oximetry 96 11/02/24 21:20 Temperature 36.6 C 11/02/24 21:20 Temperature Source Tympanic 11/02/24 21:20 Pulse 98 H 11/02/24 21:20 Respiratory Rate 18 11/02/24 21:20 Blood Pressure 130/83 11/02/24 21:20 Blood Pressure Position Sitting 11/02/24 21:20 Pulse Oximetry 96 11/02/24 21:20 Oxygen Delivery Method Room Air 11/02/24 21:20 Oxygen Flow Rate 0 11/02/24 21:20 Pain Level 9 11/02/24 21:28 Medical Decision Making Results: CT head and cervical spine per radiology interpretation my review does not show evidence of acute abnormality x-ray of pelvis and lumbar spine per radiology interpretation my review does not show acute fracture there was mention of a possible ileus or SBO, however patient has no abdominal tenderness is passing gas and is not vomiting and having normal bowel movements low suspicion clinically for bowel obstruction Initial Assessment: 34-year-old male with alcoholism and neurogenic claudication presents after fall with loss of consciousness, impacting left side of head and back. Alert and oriented, alcohol odor, slightly slurred speech. Bruising around gluteal cleft, lumbar spine tenderness, mild cervical spine tenderness, left orthodox tenderness. No nausea, vomiting, headache, or history of anticoagulation. ED Course: - Ordered X-rays of lumbar spine and pelvis - Ordered CT head and neck -Patient Toradol and Lidoderm patch, I will give a prescription for Flexeril patient will not combine this with alcohol -Return precautions reviewed -Work note supplied - Final Assessment: Presented after fall with loss of consciousness. Imaging studies ordered. Clinical Impression: - Fall - Alcohol intoxication MDM Components Evaluation: - Number of Differential Diagnoses or Management Options: Fall, Alcohol intoxication - Amount and Complexity of Data Reviewed: X-rays of lumbar spine and pelvis, CT head and neck - Risk of Complication and Morbidity or Mortality: Risk of complications due to fall and alcohol intoxication Quality:SDOH Health Related Social Needs: Health related social needs details Below PFSH All Active Problems (Updated 11/02/24 @ 23:30 by ZAHEER Ivory) Head injury (Acute) Lumbar contusion (Acute) Nausea vomiting and diarrhea (Acute) Obesity (Chronic) Cubital tunnel syndrome, bilateral (Acute) Meralgia paresthetica of right side (Acute) Alcohol abuse (Chronic) Liver enzyme elevation (Acute) Family history of diabetes mellitus (DM) (Acute) Major depression (Chronic) Lumbosacral strain (Acute) Neurogenic claudication (Acute) Low back pain (Acute) Right sided sciatica Episodic ataxia with slurred speech (Acute) Medical History Petechial rash left lower leg No significant past medical history Surgical History No significant past surgical history Social History Smoking/Tobacco Use Status: Current every day Tobacco Type: cigarettes Tobacco: How many years used: 20 Smokeless tobacco user: chewing tobacco Quit status: considering quitting Smoking risk assessment performed?: Yes Alcohol Intake: current Alcohol Intake frequency: 3 or more drinks per day Alcohol type: beer Drug use: Daily Substance use type: marijuana Details: has 2 beers tonight before arrival 11/02/24. 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 Pets and animals: Yes (1) Pets and animals: dog(s) Sexually active: No Do you think of yourself as: straight/heterosexual Current gender identity: male What is your relationship status?: never How often do you talk on the phone with friends or family?: once per week How often do you get together with friends or relatives?: once per week How often do you attend shinto or adventist services?: 1-3 times per year Do you belong to any clubs or organized social groups?: no Panel score (0-1 are the most socially isolated patients): 0 What type of physical activity do you participate in: none Duration: < 15 minutes/day Frequency: 1-2 times per week Miya/Nondenominational: None Special miya needs: No Seatbelt use: sometimes Helmet use: Yes Helmet use: sometimes 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 Do you feel safe at home: Yes Do you feel safe in your relationship?: Yes PAWSS Have you Been Recently Intoxicated or Drunk Within the Last 30 days?: Yes Have you Ever Experienced Previous Episodes of Alcohol Withdrawal?: No Have you ever Experienced Withdrawal Seizures?: No Have you ever Experienced Delirium Tremens(DT)s?: No Have you ever undergone Alcohol Rehabilitation Treatment (i.e, inpt ot outpatient treatment programs)?: No Have you ever Experienced Blackouts?: Yes Have you ever Combined Alcohol with other Downers within the last 90 days?: No Have you ever Combined Alcohol with any other Substance of Abuse during the last 90 days?: Yes Positive Blood Alcohol level on Presentation? [PCS.BAL]: No Evidence of Increased Autonomic Activity (i.e. HR>120, tremor, sweating, agitation, nausea)?: No Result: 4
== END 2024-11-02 23:39 | disposition home or self-care (01) ==
PROVIDERS: Emergency Provider Physician Assistant; PCP Family Medicine
DX: S09.8XXA Other specified injuries of head, initial encounter (principal); S30.0XXA Contusion of lower back and pelvis, initial encounter; W19.XXXA Unspecified fall, initial encounter; Y93.K1 Activity, walking an animal
CPT/HCPCS: 99283; 99284; 96372; 36415; 70450; 72110; 72125; 72170; J1885